=== PATIENT | male | born 1955 | race Caucasian/White ===

== ENCOUNTER → 2016-11-22 | Outpatient (CLI) | payer BC | LOC: GMAL 10:30 | PROVIDERS: ATTEND Family Medicine | DX: Z12.5 Encounter for screening for malignant neoplasm of prostate (principal) ==

== ENCOUNTER → 2018-01-20 | Outpatient (CLI) | payer MEDICARE | LOC: GMAL 10:48 | PROVIDERS: ATTEND Family Medicine | DX: D51.3 Other dietary vitamin B12 deficiency anemia (principal); E55.9 Vitamin D deficiency, unspecified; Z12.5 Encounter for screening for malignant neoplasm of prostate | CPT/HCPCS: 82306; 82607; G0103 ==

== ENCOUNTER → 2019-07-07 | Outpatient (CLI) | payer MEDICARE, OTHER ==
--- NOTE | 2019-07-07 13:18 | US ---
EXAM DESCRIPTION: Testicular: Ultrasound. 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 Patient states similar problem in scrotum previously. COMPARISON: None. TECHNIQUE: Transcutaneous scanning ; mendoza-scale and Doppler modes. FINDINGS: Dimensions of the right testicle are 3.2 x 2.2 x 2.1 cm, with normal echogenicity and normal color Doppler flow. Epididymal head measures 10.6 x 8.6 x 5.4 mm, with heterogeneous hypoechoic appearance and minimal enlargement of the body of the epididymis also hypoechoic. Normal color Doppler flow. Minimal inferior scrotal wall thickening. Dilated vessels inferior to the testicle and scar tissue. Moderate Hydrocele. Dimensions of the left testicle are 2.5 x 2.3 x 3.1 cm, with normal echogenicity and normal color Doppler flow. Epididymal head measures 14.8 x 8.3 x 8.5 mm, with heterogeneous hypoechoic echoes. Increased size and decreased echogenicity in the body and tail. Increased color Doppler flow. No scrotal wall thickening. Moderate Hydrocele. IMPRESSION: 1. Abnormal echogenicity and thickening of the left epididymis particularly the body and tail. Increased vascularity. This is most likely diffuse epididymitis. Minimal right epididymitis versus chronic epididymitis or previous inflammatory process. 2. Bilateral hydroceles left more than right. More debris and thickening in the right scrotum compared to the left. Small varicocele inferior right scrotum. Electronically signed by: Laci Ayoub MD 07/07/2019 1:17 PM CDT
== END ==
LOC: US 09:30
PROVIDERS: ATTEND Family Medicine
DX: N50.89 Other specified disorders of the male genital organs (principal); N43.3 Hydrocele, unspecified; I86.1 Scrotal varices

== ENCOUNTER → 2020-03-21 | Outpatient (CLI) | payer MEDICARE, OTHER | LOC: GMAL 11:35 | PROVIDERS: ATTEND Family Medicine | DX: Z12.5 Encounter for screening for malignant neoplasm of prostate (principal); E55.9 Vitamin D deficiency, unspecified; D51.3 Other dietary vitamin B12 deficiency anemia; Z79.899 Other long term (current) drug therapy; I10 Essential (primary) hypertension | CPT/HCPCS: 82306; 82607; 84443; G0103 ==